=== PATIENT | male | born 1990 | race African-American/Black ===

== ENCOUNTER 2017-11-05 09:56 | Emergency (ER) | payer SELFPAY ==
[~2017-11-05] VITALS: Ht 182.9 cm; Wt 109.0 kg
[2017-11-05] MEDS ORDERED: IBUPROFEN 600MG TABLET PO ONE (11:00)
[2017-11-05 11:23] VITALS: BP 149/90
== END 2017-11-05 11:47 | disposition home or self-care (01) ==
LOC: ER 11:11
DX: S10.93XA Contusion of unspecified part of neck, initial encounter (principal); S30.0XXA Contusion of lower back and pelvis, initial encounter; S60.212A Contusion of left wrist, initial encounter; S60.211A Contusion of right wrist, initial encounter; V49.40XA Driver injured in collision with unspecified motor vehicles in traffic accident, initial encounter; Y93.89 Activity, other specified; Y92.410 Unspecified street and highway as the place of occurrence of the external cause; R03.0 Elevated blood-pressure reading, without diagnosis of hypertension; F17.210 Nicotine dependence, cigarettes, uncomplicated
CPT/HCPCS: 99282